=== PATIENT | female | born 1990 | race Hispanic/Latino ===

== ENCOUNTER 2022-06-05 07:34 | Outpatient (CLI) | payer OTHER | END 2022-06-05 07:35 | disposition home or self-care (01) | LOC: CSHULT 07:34 | PROVIDERS: ATTEND Family Medicine | DX: Z34.82 Encounter for supervision of other normal pregnancy, second trimester (principal); Z3A.21 21 weeks gestation of pregnancy | CPT/HCPCS: 76805 ==

== ENCOUNTER 2022-10-14 19:00 | Inpatient (IN) | payer MEDICAID, OTHER ==
[~2022-10-14 19:00] MED LIST: Bupivacaine 0.25% HCL 30 ML VIAL ONE; Bupivacaine PF 0.5% 30 ML VIAL ONE; Lidocaine 2% MPF 10 ML AMP (For Epidural Use) ONE
[2022-10-14 22:38] VITALS: BMI 39.1
[2022-10-14] MEDS ORDERED: Butorphanol Tartrate 1 MG/ML VIAL SLOW IVP PRN (22:56)
[2022-10-14] MEDS ORDERED: Lidocaine 1% (PF) 30 ML VIAL SC PRN (22:56)
[2022-10-14] MEDS ORDERED: Ondansetron PF 4 MG/2 ML Vial IVP PRN (22:56)
[2022-10-14] MEDS ORDERED: Carboprost 250 MCG/ML AMP IM PRN (22:56)
[2022-10-14] MEDS ORDERED: Acetaminophen 500 MG TAB PO PRN (22:56)
[2022-10-14] MEDS ORDERED: Ibuprofen 800 MG TAB PO PRN (22:56)
[2022-10-14] MEDS ORDERED: Diphenoxylate HCl/Atropine Tablet PO PRN (22:56)
[2022-10-14] MEDS ORDERED: Promethazine HCl 25 MG/ML VIAL IM PRN (22:56)
[2022-10-14] MEDS ORDERED: HYDROcodone/Acetaminophen 5/325 mg Tablet PO PRN (22:56)
[2022-10-14] MEDS ORDERED: Misoprostol 200 MCG TAB PR PRN (22:56)
[2022-10-14] MEDS ORDERED: Methylergonovine 0.2 MG/ML VIAL IM PRN (22:56)
[2022-10-14] MEDS ORDERED: hydrALAZINE 20 MG/ML VIAL SLOW IVP PRN (22:56)
[2022-10-14] MEDS ORDERED: NS w/ Oxytocin 30 units 500 ML IV SCH ×2 (23:15)
[2022-10-14 23:18] LABS: Hemoglobin 9.9 g/dL (12.0-15.5); Mean Corpuscular HGB CONC 29.4 g/dL (32.0-36.0); Mean Corpuscular Hemoglobin 19.6 pg (27.0-33.0); Mean Corpuscular Volume 66.9 fl (81.6-98.3); Mean Platelet Volume 10.6 fl (7.4-10.4); Platelet Count 286 10x3/uL (150-450); RBC Distribution Width 23.7 % (11.5-14.5); Red Blood Cell (RBC) Count 5.04 10x6/uL (3.90-5.03); White Blood Cell (WBC) Count 11.6 10x3/uL (3.5-10.5)
[2022-10-14] MEDS: Misoprostol 100 MCG TAB VAG SCH (23:21)
[2022-10-15 00:26] LABS: SARS-CoV-2 NAA Rapid Test Not Detected (NotDetected)
[2022-10-15 01:51] LABS: HBSAg Index 0.18 S/CO (0-0.99); Hep B Surf Ag Non-Reactive S/CO (NonReactive)
[2022-10-15 01:52] LABS: Syphilis Antibody Nonreactive (Nonreactive); Syphilis Antibody Index 0.07 S/CO (<1.00 Non-Reactive)
[2022-10-15] MEDS: Lactated Ringer's 1,000 ML IV SCH ×2 (08:14→11:11)
[2022-10-15] MEDS ORDERED: Fentanyl 2 mcg/Bup 0.1% Cadd 100 ML ONE (09:30)
[2022-10-15] MEDS: Fentanyl 2 mcg/Bupivacaine 0.1% Cassette 100 ML EPIDURAL SCH ×2 (11:11→19:41)
[2022-10-15] MEDS ORDERED: Moisturizing Cream (Eucerin) 113 GM JAR TOP PRN (11:38)
[2022-10-15] MEDS ORDERED: Naloxone HCl 0.4 mg/ml Vial IVP PRN ×2 (11:38)
[2022-10-15] MEDS ORDERED: Promethazine HCl 25 MG/ML VIAL IM PRN (11:38)
[2022-10-15] MEDS ORDERED: Acetaminophen 325 MG TAB PO PRN (11:38)
[2022-10-15] MEDS ORDERED: ePHEDrine Sulfate 50 MG/10 ML VIAL SLOW IVP PRN (11:38)
[2022-10-15] MEDS ORDERED: Ondansetron PF 4 MG/2 ML Vial IVP PRN (11:38)
[2022-10-15] MEDS ORDERED: diphenhydrAMINE 50 MG/ML VIAL IVP PRN (11:38)
[2022-10-15] MEDS ORDERED: Communication Order-Pharmacy FS SCH (11:45)
[2022-10-15] MEDS ORDERED: Lactated Ringer's 500 ML IV PRN (11:53)
[2022-10-15] MEDS ORDERED: CEFAZOLIN 2 GM VIAL ONE (22:35)
[2022-10-15] MEDS ORDERED: Azithromycin 500 MG VIAL ONE (22:36)
[2022-10-15] MEDS ORDERED: Oxytocin 10 UNITS/ML VIAL ONE (23:16)
[2022-10-15] MEDS ORDERED: Morphine PF 10 MG/10 ML VIAL ONE (23:17)
[2022-10-15] MEDS ORDERED: PHENYLEPHRINE-NS 100 MCG/ML 10 ML SYRINGE ONE (23:28)
[2022-10-15] MEDS ORDERED: Ondansetron PF 4 MG/2 ML Vial ONE (23:36)
[2022-10-15] MEDS ORDERED: Fentanyl 100 MCG/2 ML VIAL SLOW IVP PRN (23:38)
[2022-10-15] MEDS ORDERED: Meperidine HCl/PF 25 MG/ML VIAL SLOW IVP PRN (23:38)
[2022-10-15] MEDS ORDERED: Ondansetron HCl/PF 4 MG/2 ML Vial IVP PRN (23:38)
[2022-10-15] MEDS ORDERED: Ketorolac Tromethamine 30 MG/ML VIAL IVP SCH (23:45)
[2022-10-16] MEDS ORDERED: Bisacodyl 10 MG SUPP PR PRN (00:41)
[2022-10-16] MEDS ORDERED: hydrALAZINE 20 MG/ML VIAL SLOW IVP PRN (00:41)
[2022-10-16] MEDS ORDERED: Lanolin Ointment 7 GM TUBE TOP PRN (00:41)
[2022-10-16] MEDS ORDERED: diphenhydrAMINE 25 MG CAP PO PRN (00:41)
[2022-10-16] MEDS ORDERED: Meperidine HCl/PF 25 MG/ML VIAL IM PRN (00:41)
[2022-10-16] MEDS ORDERED: Ondansetron PF 4 MG/2 ML Vial IVP PRN (00:41)
[2022-10-16] MEDS ORDERED: Boostrix 0.5 ML (Tdap) VIAL (>/=7 yrs of age) IM ONE (00:41)
[2022-10-16] MEDS ORDERED: Meperidine HCl/PF 25 MG/ML VIAL ONE (00:55)
[2022-10-16] MEDS ORDERED: NS w/ Oxytocin 30 units 500 ML IV SCH (01:00)
[2022-10-16] MEDS: Misoprostol 100 MCG TAB VAG SCH ×2 (04:12→04:13)
[2022-10-16 04:56] LABS: Hemoglobin 8.9 g/dL (12.0-15.5); Mean Corpuscular HGB CONC 29.4 g/dL (32.0-36.0); Mean Corpuscular Hemoglobin 19.8 pg (27.0-33.0); Mean Corpuscular Volume 67.5 fl (81.6-98.3); Mean Platelet Volume 10.1 fl (7.4-10.4); Platelet Count 239 10x3/uL (150-450); RBC Distribution Width 23.9 % (11.5-14.5); Red Blood Cell (RBC) Count 4.49 10x6/uL (3.90-5.03); White Blood Cell (WBC) Count 16.4 10x3/uL (3.5-10.5)
[2022-10-16] MEDS: Lactated Ringer's 1,000 ML IV SCH (08:29)
[2022-10-16] MEDS: Prenatal Vitamin 1 TAB PO SCH (08:45)
[2022-10-16] MEDS: Docusate 100 MG CAP PO SCH ×2 (08:46→21:31)
[2022-10-16] MEDS: Ketorolac Tromethamine 30 MG/ML VIAL IVP SCH ×3 (08:46→13:41)
[2022-10-16] MEDS: Ferrous Sulfate 325 MG TAB PO SCH ×2 (08:46→21:31)
[2022-10-16] MEDS: Simethicone Chewable 80 MG TAB PO PRN ×2 (08:47→21:30)
[2022-10-16] MEDS: HYDROcodone/Acetaminophen 5/325 mg Tablet PO PRN ×2 (12:14→17:28)
[2022-10-16] MEDS: Ibuprofen 800 MG TAB PO SCH (21:32)
[2022-10-17] MEDS: HYDROcodone/Acetaminophen 5/325 mg Tablet PO PRN ×5 (00:28→21:01)
[2022-10-17] MEDS: Ibuprofen 800 MG TAB PO SCH ×3 (05:48→21:00)
[2022-10-17] MEDS: Simethicone Chewable 80 MG TAB PO PRN ×2 (05:48→17:05)
[2022-10-17] MEDS ORDERED: Ibuprofen 800 MG TAB PO SCH (06:00)
[2022-10-17] MEDS: Docusate 100 MG CAP PO SCH ×2 (08:07→20:59)
[2022-10-17] MEDS: Prenatal Vitamin 1 TAB PO SCH (08:08)
[2022-10-17] MEDS: Ferrous Sulfate 325 MG TAB PO SCH ×2 (08:08→20:59)
[2022-10-18] MEDS: HYDROcodone/Acetaminophen 5/325 mg Tablet PO PRN ×4 (02:24→17:49)
[2022-10-18] MEDS: Simethicone Chewable 80 MG TAB PO PRN ×4 (02:25→17:49)
[2022-10-18] MEDS: Ibuprofen 800 MG TAB PO SCH ×2 (06:07→14:15)
[2022-10-18] MEDS: Ferrous Sulfate 325 MG TAB PO SCH (08:53)
[2022-10-18] MEDS: Docusate 100 MG CAP PO SCH (08:53)
[2022-10-18] MEDS: Prenatal Vitamin 1 TAB PO SCH (08:53)
[2022-10-18 13:53] VITALS: BP 114/62; TEMP 98.3
== END 2022-10-18 18:45 | disposition home or self-care (01) | DRG 788 ==
LOC: CSHLD 22:06 → CSHPP 10-16 04:00
PROVIDERS: ADMIT Family Medicine; ATTEND Family Medicine
PROC: 10907ZC Drainage of Amniotic Fluid, Therapeutic from Products of Conception, Via Natural or Artificial Opening (ICD-10-PCS; 2022-10-14)
PROC: 3E0P7VZ Introduction of Hormone into Female Reproductive, Via Natural or Artificial Opening (ICD-10-PCS; 2022-10-14)
PROC: 10D00Z1 Extraction of Products of Conception, Low, Open Approach (ICD-10-PCS; principal; 2022-10-15)
PROC: 10H07YZ Insertion of Other Device into Products of Conception, Via Natural or Artificial Opening (ICD-10-PCS; 2022-10-15)
DX: O69.81X0 Labor and delivery complicated by cord around neck, without compression, not applicable or unspecified (principal); Z37.0 Single live birth; Z3A.40 40 weeks gestation of pregnancy; Z20.822 Contact with and (suspected) exposure to COVID-19; O62.1 Secondary uterine inertia
CPT/HCPCS: 36415; 51702; 85027; 86780; 86850; 86900; 86901; 87340; 90715; J1885; J2175; J2274; J2405; J2590; J7120; S0020; U0002